=== PATIENT | male | born 2005 | race African-American/Black ===

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

== ENCOUNTER 2023-03-15 23:42 | Emergency (ER) | payer SELFPAY ==
[2023-03-16] MEDS ORDERED: Ibuprofen 200 MG TAB ONE (00:11)
[2023-03-16] MEDS ORDERED: cefTRIAXone (ROCEPHIN) 500 MG VIAL ONE (00:11)
[2023-03-16] MEDS ORDERED: Sterile Water 10 ML ONE (00:11)
[2023-03-16] MEDS ORDERED: Doxycycline 100 MG CAP PO SCH (00:15)
[2023-03-17 01:27] LABS: Chlam.trachomatis by PCR,Urine Not Detected (NotDetected); GC N.gonorrhoeae PCR,UrineVOID DETECTED (NotDetected)
== END 2023-03-16 00:35 | disposition home or self-care (01) ==
LOC: CSHERS 23:42
DX: A64 Unspecified sexually transmitted disease (principal)
CPT/HCPCS: 87491; 87591; 96372; 99283; J0696